=== PATIENT | male | born 1985 | race Caucasian/White ===

== ENCOUNTER 2019-05-29 14:41 | Emergency (ER) | payer BC ==
[~2019-05-29] VITALS: Ht 177.8 cm; Wt 78.0 kg
[2019-05-29 15:10] LABS: BASOPHILS # (AUTO) 0.1 10^3/uL (0.0-0.1); BASOPHILS % (AUTO) 2 % (0-10); EOSINOPHILS # (AUTO) 0.4 10^3/uL (0.0-0.3); EOSINOPHILS % (AUTO) 8 % (0-10); HEMATOCRIT 44 % (40-54); HEMOGLOBIN 14.9 G/DL (13.3-17.7); LYMPHOCYTES # (AUTO) 1.4 X 10^3 (1.0-4.0); LYMPHOCYTES % (AUTO) 27 % (12-44); MEAN CORPUSCULAR HEMOGLOBIN 30 PG (25-34); MEAN CORPUSCULAR HGB CONC 34 G/DL (32-36); MEAN CORPUSCULAR VOLUME 87 FL (80-99); MEAN PLATELET VOLUME 9.9 FL (7.4-10.4); MONOCYTES # (AUTO) 0.6 X 10^3 (0.0-1.0); MONOCYTES % (AUTO) 11 % (0-12); NEUTROPHILS # (AUTO) 2.7 X 10^3 (1.8-7.8); NEUTROPHILS % (AUTO) 53 % (42-75); PLATELET COUNT 311 10^3/uL (130-400); RED CELL DISTRIBUTION WIDTH 11.9 % (10.0-14.5); WHITE BLOOD COUNT 5.1 10^3/uL (4.3-11.0)
[2019-05-29] MEDS ORDERED: KETOROLAC 30 MG/ML VIAL IVP ONE (15:15)
[2019-05-29] MEDS ORDERED: HOLD METFORMIN - RECEIVED CONTRAST 20 ML VIAL IV SCH (15:15)
[2019-05-29] MEDS ORDERED: NS IV 1000 ML 1,000 ML IV SCH (15:15)
[2019-05-29] MEDS ORDERED: IOHEXOL 350 MG/ML 100 ML (OMNIPAQUE 350) VIAL IV ONE (15:15)
[2019-05-29] MEDS ORDERED: NS 100 ML (IVPB) BAG IV ONE (15:15)
[2019-05-29] MEDS ORDERED: fentaNYL INJECTION 100 MCG/2 ML AMP IVP ONE (15:15)
--- NOTE | 2019-05-29 15:16 | ED Integumentary General ---
General Chief Complaint: Skin/Wound Problems Stated Complaint: TWO SPIDER BITES/FEVER Nursing Triage Note: PT HAD AN ABCESSS TO LEFT ABD AND LEFT GROIN. PT STATES HE SAW DR. JIMENEZ ON THURSDAY. BARBARA CUT OPEN WOUND, DRAINED AND PACKED WOUND. PT STATES INCREASE IN PAIN AND STATES HAVING A DIFFICULT TIME REMOVING THE PACKING FROM THE GROIN WOUND. PT STATES FEVER LAST NIGHT. PT WAS PRESCRIBED HYDRO 325 FOR PAIN AND TOOK ON YESTERDAY. Source: patient Exam Limitations: no limitations History of Present Illness Date Seen by Provider: May 29, 2019 Time Seen by Provider: 15:12 Initial Comments To ER with an abscess to left side of the abdomen. This was first noticed about 8 days ago. Was seen by Dr. Goodrich shortly thereafter, referred to Dr. Jimenez who did incision and drainage, packed these with gauze packing. Patient presents today with reports of increase in redness and pain and difficulty removing the packing from the most inferior incision Timing/Duration: week, getting worse Severity: moderate Associated Symptoms: denies symptoms Allergies and Home Medications Allergies Coded Allergies: No Known Drug Allergies (Unverified , 05/29/19) Patient Home Medication List Home Medication List Reviewed: Yes Review of Systems Review of Systems Constitutional: see HPI EENTM: see HPI Respiratory: no symptoms reported Cardiovascular: no symptoms reported Genitourinary: no symptoms reported Musculoskeletal: no symptoms reported Skin: see HPI Psychiatric/Neurological: No Symptoms Reported Endocrine: No Symptoms Reported Past [place]x-Tbfmwa-Yhadlz Hx Patient Social History Recent Foreign Travel: No Contact w/Someone Who Travel: No Recent Infectious Disease Expo: No Physical Exam Vital Signs Vital Signs - First Documented 05/29/19 14:48 Temp 96.8 Pulse 71 Resp 18 B/P (MAP) 126/79 (95) Pulse Ox 96 O2 Delivery Room Air Capillary Refill : Less Than 3 Seconds General Appearance: WD/WN, no apparent distress HEENT: PERRL/EOMI, normal ENT inspection Respiratory: no respiratory distress, no accessory muscle use Gastrointestinal: normal bowel sounds, non tender, soft, other (incision to the left lateral abdominal wall with gauze packing in place there is about 3 cm of erythema extending from the most lateral aspect of this, no erythema to the sup erior medial or inferior aspect of the incision. The most inferior incision that is below this to the left side of the mons pubis has gauze packing extending from it, the reason they can't remove it is due to pain, not because it will not come out. There is no erythema extending from this. Despite allegations that these wounds looked worse, they actually both look appropriate for one week post incision and drainage without alarming features.) Neurologic/Psychiatric: alert, normal mood/affect, oriented x 3 Skin: normal color, warm/dry Skin Problem Character: abscess Progress/Results/Core Measures Results/Orders Lab Results Laboratory Tests Test 05/29/19 15:05 Range/Units White Blood Count 5.1 4.3-11.0 10^3/uL Red Blood Count 5.02 4.35-5.85 10^6/uL Hemoglobin 14.9 13.3-17.7 G/DL Hematocrit 44 40-54 % Mean Corpuscular Volume 87 80-99 FL Mean Corpuscular Hemoglobin 30 25-34 PG Mean Corpuscular Hemoglobin Concent 34 32-36 G/DL Red Cell Distribution Width 11.9 10.0-14.5 % Platelet Count 311 130-400 10^3/uL Mean Platelet Volume 9.9 7.4-10.4 FL Neutrophils (%) (Auto) 53 42-75 % Lymphocytes (%) (Auto) 27 12-44 % Monocytes (%) (Auto) 11 0-12 % Eosinophils (%) (Auto) 8 0-10 % Basophils (%) (Auto) 2 0-10 % Neutrophils # (Auto) 2.7 1.8-7.8 X 10^3 Lymphocytes # (Auto) 1.4 1.0-4.0 X 10^3 Monocytes # (Auto) 0.6 0.0-1.0 X 10^3 Eosinophils # (Auto) 0.4 H 0.0-0.3 10^3/uL Basophils # (Auto) 0.1 0.0-0.1 10^3/uL Sodium Level 139 135-145 MMOL/L Potassium Level 4.1 3.6-5.0 MMOL/L Chloride Level 101 98-107 MMOL/L Carbon Dioxide Level 26 21-32 MMOL/L Anion Gap 12 5-14 MMOL/L Blood Urea Nitrogen 12 7-18 MG/DL Creatinine 1.19 0.60-1.30 MG/DL Estimat Glomerular Filtration Rate > 60 BUN/Creatinine Ratio 10 Glucose Level 129 H 70-105 MG/DL Calcium Level 10.2 H 8.5-10.1 MG/DL Corrected Calcium 9.9 8.5-10.1 MG/DL Total Bilirubin 0.2 0.1-1.0 MG/DL Aspartate Amino Transf (AST/SGOT) 15 5-34 U/L Alanine Aminotransferase (ALT/SGPT) 28 0-55 U/L Alkaline Phosphatase 54 40-136 U/L Total Protein 8.2 6.4-8.2 GM/DL Albumin 4.4 3.2-4.5 GM/DL My Orders Orders - LISA GONSALVES APRN Ed Iv/Invasive Line Start (05/29/19 14:52) Cbc With Automated Diff (05/29/19 14:52) Comprehensive Metabolic Panel (05/29/19 14:52) Ns Iv 1000 Ml (Sodium Chloride 0.9%) (05/29/19 15:15) Fentanyl Injection (Sublimaze Injection (05/29/19 15:15) Ketorolac Injection (Toradol Injection) (05/29/19 15:15) Ct Abdomen/Pelvis W (05/29/19 15:11) Iohexol Injection (Omnipaque 350 Mg/Ml 1 (05/29/19 15:15) Received Contrast (Hold Metformin- Contr (05/29/19 15:15) Ns (Ivpb) (Sodium Chloride 0.9% Ivpb Bag (05/29/19 15:15) Wound Culture (05/29/19 15:30) Clindamycin 900 Mg/50 Ml Ivpb (Cleocin P (05/29/19 16:00) Medications Given in ED Current Medications Medications Dose Ordered Sig/Huy Route Start Time Stop Time Status Last Admin Dose Admin Clindamycin Phosphate/Dextrose 50 ml @ 100 mls/hr ONCE ONCE IV 05/29/19 16:00 05/29/19 16:29 05/29/19 15:54 100 MLS/HR Fentanyl Citrate 50 mcg ONCE ONCE IVP 05/29/19 15:15 05/29/19 15:16 DC 05/29/19 15:21 50 MCG Iohexol 100 ml ONCE ONCE IV 05/29/19 15:15 05/29/19 15:23 DC 05/29/19 15:46 100 ML Ketorolac Tromethamine 15 mg ONCE ONCE IVP 05/29/19 15:15 05/29/19 15:16 DC 05/29/19 15:23 15 MG Sodium Chloride 100 ml ONCE ONCE IV 05/29/19 15:15 05/29/19 15:24 DC 05/29/19 15:46 80 ML Vital Signs/I&O 05/29/19 14:48 Temp 96.8 Pulse 71 Resp 18 B/P (MAP) 126/79 (95) Pulse Ox 96 O2 Delivery Room Air Blood Pressure Mean: 95 Departure Communication (Admissions) Packing was very easily removed from the inferior incision that they were unable to remove at home. Patient was moaning and very intolerant of this however due to pain. I was unable to repack it due to the patient's moaning in intolerance and his request to stop due to pain. Impression Primary Impression: Abdominal wall abscess Disposition: HOME, SELF-CARE Condition: Stable Departure-Patient Inst. Decision time for Depature: 15:58 Referrals: TRACY GOODRICH MD (PCP/Family) Primary Care Physician Patient Instructions: Skin Abscess Add. Discharge Instructions: Add the clindamycin to the hydrocodone. Follow-up with Dr. Jimenez. Call tomorrow for an appointment. All discharge instructions reviewed with patient and/or family. Voiced understanding. Scripts Clindamycin HCl (Clindamycin HCl) 300 Mg Capsule 300 MG PO TID, #21 CAP Prov: LISA GONSALVES APRN 05/29/19 Images Torso/Trunk 1 - 2 - Copy Copies To 1: ELIZABETH JIMENEZ PETER J APRN May 29, 2019 15:16
[2019-05-29 15:29] LABS: ALANINE AMINOTRANSFERASE 28 U/L (0-55); ALBUMIN 4.4 GM/DL (3.2-4.5); ALKALINE PHOSPHATASE 54 U/L (40-136); BILIRUBIN,TOTAL 0.2 MG/DL (0.1-1.0); BUN/CREATININE RATIO 10; CALCIUM 10.2 MG/DL (8.5-10.1); CARBON DIOXIDE 26 MMOL/L (21-32); CHLORIDE 101 MMOL/L (98-107); CREATININE SERUM 1.19 MG/DL (0.60-1.30); GFR ESTIMATED > 60; GLUCOSE 129 MG/DL (70-105); POTASSIUM 4.1 MMOL/L (3.6-5.0); SODIUM 139 MMOL/L (135-145); TOTAL PROTEIN 8.2 GM/DL (6.4-8.2)
--- NOTE | 2019-05-29 15:50 | NUR ---
Assisted Roger with removal of packing from abscess. Pt unable to tolerate repacking with iodiform. Pt asked Roger to stop.
[2019-05-29] MEDS ORDERED: CLINDAMYCIN 900 MG/50 ML IVPB 50 ML IV ONE (16:00)
--- NOTE | 2019-05-29 16:00 | NUR ---
wound culture cancelled by Roger
[2019-05-29] MEDS ORDERED: CLIN300C11 PO (16:02)
--- NOTE | 2019-05-29 16:13 | Diagnostic Imaging Report ---
PROCEDURE: CT abdomen and pelvis with contrast. TECHNIQUE: Multiple contiguous axial images were obtained through the abdomen and pelvis after administration of intravenous contrast. Auto Exposure Controls were utilized during the CT exam to meet ALARA standards for radiation dose reduction. INDICATION: Left abdominal and groin abscess, recent I&Dm, worsening pain following surgical treatment. COMPARISON: I have no previous for comparison. There is some subcutaneous edema and distortion of the fat in the left groin. No residual or drainable fluid collection is found, however. There is a solitary reactive subcentimeter lymph node in the distal left external iliac chain. There were no findings to suggest intra or extraperitoneal extension of the inflammatory process found in the groin. There was no hernia. No bony destructive process or acute osseous abnormality. No suspect foreign body. The liver, spleen, adrenals, pancreas, gallbladder, and kidneys all appeared unremarkable. There is no small or large bowel obstruction. There is no ileus or viscus perforation. The urinary bladder is unremarkable. IMPRESSION: Given the history, likely mild regional cellulitis in the left groin with mild regional reactive adenopathy. However, no residual abscess or drainable fluid collection is found and no extension to the abdominal wall. The abdominopelvic solid and hollow viscera appeared normal. Dictated by: Dictated on workstation # [id number]
[2019-05-29 16:33] VITALS: BP 110/65
== END 2019-05-29 16:33 | disposition home or self-care (01) ==
LOC: EDUNIT# 14:41 → ER 14:42
DX: L02.211 Cutaneous abscess of abdominal wall (principal)
CPT/HCPCS: 36415; 74177; 80053; 85025